=== PATIENT | male | born 1955 | race African-American/Black ===

== ENCOUNTER 2024-06-22 15:46 | Inpatient (IN) | payer MEDICARE, OTHER ==
[~2024-06-22] VITALS: Ht 167.6 cm; Wt 91.2 kg
[~2024-06-22 15:46] MED LIST: ACET-868 PO; RISP2TAB5 PO; [UNRECOGNIZED DRUG - CODE] PO
[2024-06-22 16:23] LABS: BASOPHILS % (AUTO) 0.4 % (0.0-2.0); EOSINOPHILS # (AUTO) 0.2 K/uL (0.0-0.7); HEMATOCRIT 40 % (39-51); HEMOGLOBIN 13.5 g/dL (13.5-17.5); LYMPHOCYTES # (AUTO) 2.4 K/uL (0.8-4.8); LYMPHOCYTES % (AUTO) 50.9 % (20.0-44.0); MEAN CORPUSCULAR HEMOGLOBIN 32 PG (26.0-33.0); MEAN CORPUSCULAR HGB CONC 34 g/dl (31.0-36.0); MEAN CORPUSCULAR VOLUME 96 fL (80-96); MONOCYTES # (AUTO) 0.3 K/uL (0.1-1.30); NEUTROPHILS # (AUTO) 1.8 K/uL (1.8-8.9); NEUTROPHILS % (AUTO) 37.7 % (43.0-81.0); PLATELET COUNT (AUTO) 216 K/uL (150-450); RED BLOOD CELL COUNT(AUTO) 4.19 MIL/uL (4.5-6.0); RED CELL DISTRIBUTION WIDTH 14.8 % (11.5-15.0); WHITE BLOOD COUNT (AUTO) 4.7 K/uL (4.3-11.0)
[2024-06-22 16:30] LABS: CALCIUM, SERUM 9.1 mg/dL (8.5-10.1); CARBON DIOXIDE 32 mmol/L (21-32); CHLORIDE 103 mmol/L (98-107); CREATININE 1.4 mg/dL (0.6-1.3); GLUCOSE 81 mg/dL (74-106); POTASSIUM 4.2 mmol/L (3.5-5.1); SODIUM SERUM 139 mmol/L (136-145); UREA NITROGEN, BLOOD 18 mg/dL (7-18)
[2024-06-22 16:36] LABS: ALANINE AMINOTRANSFERASE 32 U/L (12-78); ALCOHOL, BLOOD < 3 mg/dL (0-10); ALKALINE PHOSPHATASE 54 U/L (46-116); ASPARTATE AMINOTRANSFERASE 36 U/L (15-37); BILIRUBIN,DIRECT 0.1 mg/dL (0.0-0.2); BILIRUBIN,TOTAL 0.3 mg/dL (0.2-1.0); TOTAL PROTEIN, SERUM 7.5 g/dL (6.4-8.2)
[2024-06-22 16:47] LABS: ACETAMINOPHEN 0 ug/ml (10-30); SALICYLATE 0.6 mg/dL (2.8-20.0)
[2024-06-22 16:53] LABS: ALBUMIN 3.5 g/dL (3.4-5.0)
[2024-06-22 16:58] LABS: APPEARANCE,URINE Clear (CLEAR); BILIRUBIN,URINE Negative (NEGATIVE); BLOOD, URINE Trace-intact Ery/uL (NEGATIVE); COLOR,URINE LIGHT YELLOW (YELLOW); KETONES,URINE Trace mg/dL (NEGATIVE); LEUKOCYTE ESTERASE ,URINE Small (NEGATIVE); NITRITE, URINE Negative (NEGATIVE); PROTEIN,URINE Negative (NEGATIVE); UGLUCOSE Negative (NEGATIVE); UROBILINOGEN,URINE 0.2 EU/dL (0.2)
[2024-06-22] MEDS ORDERED: ARIP5TAB59 PO (16:58)
[2024-06-22] MEDS ORDERED: MELA3TAB41 PO (16:58)
[2024-06-22] MEDS ORDERED: TRAZ-182 PO (16:58)
[2024-06-22] MEDS ORDERED: MAGN400O6 PO (16:58)
[2024-06-22] MEDS ORDERED: BISA10SU11 RC (16:58)
[2024-06-22] MEDS ORDERED: NA P133E RC (16:58)
[2024-06-22] MEDS ORDERED: DIVA-78 PO (16:58)
[2024-06-22] MEDS ORDERED: HALO5TAB8 PO (16:58)
[2024-06-22 17:01] LABS: AMPHETAMINE, URINE NEGATIVE (NEGATIVE); BARBITURATE, URINE NEGATIVE (NEGATIVE); BENZODIAZEPINE, URINE NEGATIVE (NEGATIVE); CANNABINOID, URINE NEGATIVE (NEGATIVE); COCCAINE, URINE NEGATIVE (NEGATIVE); OPIATE, URINE NEGATIVE (NEGATIVE); PHENCYCLIDINE SCREEN,URINE NEGATIVE (NEGATIVE)
[2024-06-22 18:05] LABS: ADD URINE CULTURE YES; BACTERIA,URINE Rare /HPF (None Seen); WBC,URINE 21-50 /HPF (0-3)
[2024-06-22 18:06] LABS: SQUAMOUS EPITHELIAL CELL,UR Rare /HPF (None Seen)
[2024-06-22] MEDS: CEPHALEXIN MONOHYDRATE 500 MG CAPSULE PO ONE (20:21)
[2024-06-23] MEDS ORDERED: MAGNESIUM HYDROXIDE 30 ML UDC PO PRN
[2024-06-23] MEDS ORDERED: MAG HYDROX/AL HYDROX/SIMETH 30 ML UDC PO PRN
[2024-06-23] MEDS ORDERED: ZOLPIDEM TARTRATE 5 MG TABLET PO PRN
[2024-06-23] MEDS: BLOOD SUGAR DIAGNOSTIC 1 EACH STRIP IN ONE (00:19)
[2024-06-23 00:33] VITALS: BP 142/68; TEMP 97.8; O2SAT 98
[2024-06-23] MEDS: CEPHALEXIN MONOHYDRATE 250 MG CAPSULE PO SCH (00:47)
[2024-06-23 06:37] VITALS: BP 152/66; TEMP 97.6; O2SAT 100
[2024-06-23] MEDS: QUETIAPINE FUMARATE 25 MG TABLET PO PRN (11:40)
[2024-06-23] MEDS ORDERED: TEMAZEPAM 7.5 MG CAPSULE PO PRN (14:00)
[2024-06-23] MEDS: SENNOSIDES 8.6 MG TABLET PO SCH (14:26)
[2024-06-23] MEDS: DIVALPROEX SODIUM 250 MG TABLET.DR PO SCH (14:26)
[2024-06-23 16:00] VITALS: BP 133/85; TEMP 97.6; O2SAT 98
[2024-06-23 16:54] LABS: CREATININE, URINE 104.1 MG/DL (30.0-125.0); URINE TOTAL PROTEIN 7.1 mg/dL (0-11.9)
[2024-06-23] MEDS ORDERED: SORBITOL SOLUTION 70% 30 ML SOLUTION PO PRN (17:00)
[2024-06-23 20:00] VITALS: BP 138/90; TEMP 97.8; O2SAT 100
[2024-06-23 20:12] LABS: APPEARANCE,URINE CLEAR (CLEAR); BILIRUBIN,URINE NEGATIVE (NEGATIVE); BLOOD, URINE NEGATIVE Ery/uL (NEGATIVE); COLOR,URINE YELLOW (YELLOW); KETONES,URINE NEGATIVE (NEGATIVE); LEUKOCYTE ESTERASE ,URINE 1+ (NEGATIVE); NITRITE, URINE NEGATIVE (NEGATIVE); PH,URINE 6.5 (5.0-8.0); PROTEIN,URINE NEGATIVE (NEGATIVE); UGLUCOSE NEGATIVE (NEGATIVE); UROBILINOGEN,URINE 0.2 EU/dL (0.2)
[2024-06-23 20:18] LABS: ADD URINE CULTURE YES; BACTERIA,URINE 1+ /HPF (None Seen); RBC,URINE 0-2 /HPF (0-2)
[2024-06-23] MEDS: risperiDONE 1 MG TABLET PO SCH (20:42)
[2024-06-23 21:44] LABS: EOSINOPHIL,URINE None Seen
[2024-06-24 06:53] LABS: BASOPHILS % (AUTO) 0.5 % (0.0-2.0); EOSINOPHILS # (AUTO) 0.3 K/uL (0.0-0.7); EOSINOPHILS % (AUTO) 6.9 % (0.0-6.0); HEMATOCRIT 41 % (39-51); HEMOGLOBIN 13.7 g/dL (13.5-17.5); LYMPHOCYTES # (AUTO) 2.2 K/uL (0.8-4.8); LYMPHOCYTES % (AUTO) 54.7 % (20.0-44.0); MEAN CORPUSCULAR HEMOGLOBIN 32 PG (26.0-33.0); MEAN CORPUSCULAR HGB CONC 33 g/dl (31.0-36.0); MEAN CORPUSCULAR VOLUME 95 fL (80-96); MONOCYTES # (AUTO) 0.3 K/uL (0.1-1.30); MONOCYTES % (AUTO) 8.4 % (2.0-12.0); NEUTROPHILS # (AUTO) 1.2 K/uL (1.8-8.9); NEUTROPHILS % (AUTO) 29.5 % (43.0-81.0); PLATELET COUNT (AUTO) 200 K/uL (150-450); RED BLOOD CELL COUNT(AUTO) 4.31 MIL/uL (4.5-6.0); RED CELL DISTRIBUTION WIDTH 14.5 % (11.5-15.0); WHITE BLOOD COUNT (AUTO) 4.1 K/uL (4.3-11.0)
[2024-06-24 08:00] VITALS: BP 151/83; TEMP 97.8; O2SAT 100
[2024-06-24 08:19] LABS: ALANINE AMINOTRANSFERASE 25 U/L (12-78); ALKALINE PHOSPHATASE 54 U/L (46-116); ASPARTATE AMINOTRANSFERASE 24 U/L (15-37); BILIRUBIN,TOTAL 0.3 mg/dL (0.2-1.0); CARBON DIOXIDE 28 mmol/L (21-32); CHLORIDE 107 mmol/L (98-107); CREATININE 1.2 mg/dL (0.6-1.3); GLUCOSE 89 mg/dL (74-106); MAGNESIUM 2.1 mg/dL (1.8-2.4); POTASSIUM 4.6 mmol/L (3.5-5.1); SODIUM SERUM 144 mmol/L (136-145); TOTAL PROTEIN, SERUM 6.9 g/dL (6.4-8.2); UREA NITROGEN, BLOOD 18 mg/dL (7-18)
[2024-06-24 08:46] LABS: CREATINE KINASE, TOTAL 285 U/L (39-308)
[2024-06-24] MEDS ORDERED: ACETAMINOPHEN 325 MG TABLET PO PRN (09:30)
[2024-06-24] MEDS ORDERED: BISACODYL SUPP (10 MG) 10 MG/SUPP.RECT SUPP.RECT RC PRN (09:30)
[2024-06-24] MEDS ORDERED: MAGNESIUM HYDROXIDE 30 ML UDC PO PRN (09:30)
[2024-06-24] MEDS ORDERED: NA PHOS,M-B/NA PHOS,DI-BA 1 EA ENEMA RC PRN (09:30)
[2024-06-24] MEDS: OXCARBAZEPINE 150 MG TABLET PO SCH (13:30)
[2024-06-24 16:00] VITALS: BP 141/79; TEMP 98; O2SAT 100
[2024-06-24 20:00] VITALS: BP 139/79; TEMP 98.3; O2SAT 100
[2024-06-25 08:00] VITALS: BP 146/79; TEMP 97.8; O2SAT 100
[2024-06-25 09:12] LABS: PTH, INTACT 16 pg/mL (15-65)
[2024-06-25 16:00] VITALS: BP 116/71; TEMP 97.9; O2SAT 98
[2024-06-25 20:00] VITALS: BP 158/90; TEMP 97.9; O2SAT 98
[2024-06-25] MEDS: risperiDONE 1 MG TABLET PO SCH (20:46)
[2024-06-26 08:00] VITALS: BP 116/74; TEMP 97.7; O2SAT 97
[2024-06-26] MEDS: risperiDONE 1 MG TABLET PO SCH (08:32)
[2024-06-26 16:12] VITALS: BP 121/74; TEMP 98.1; O2SAT 99
[2024-06-26 20:00] VITALS: BP 148/87; TEMP 98.1; O2SAT 100
[2024-06-27 08:00] VITALS: BP 126/68; TEMP 97.5; O2SAT 100
[2024-06-27] MEDS: risperiDONE 1 MG TABLET PO SCH (08:19)
[2024-06-27 10:11] LABS: *SPE ALBUMIN 3.1 g/dL (2.9-4.4); *SPE ALPHA-1-GLOBULIN 0.2 g/dL (0.0-0.4); *SPE ALPHA-2-GLOBULIN 0.4 g/dL (0.4-1.0); *SPE BETA GLOBULIN 0.9 g/dL (0.7-1.3); *SPE GLOBULIN, TOTAL 3.2 g/dL (2.2-3.9); *SPE M-SPIKE Not Observed g/dL (Not Observed); *SPE PROTEIN TOTAL 6.3 g/dL (6.0-8.5); *SPEGAMMA GLOBULIN 1.8 g/dL (0.4-1.8)
[2024-06-27] MEDS: OXCARBAZEPINE 150 MG TABLET PO SCH (14:00)
[2024-06-27 16:03] VITALS: BP 138/91; TEMP 97.8; O2SAT 99
[2024-06-27 21:11] VITALS: BP 130/68; TEMP 97.9; O2SAT 99
[2024-06-28 08:00] VITALS: BP 133/79; TEMP 98.7; O2SAT 98
[2024-06-28] MEDS: OLANZAPINE 10 MG VIAL IM ONE (08:57)
[2024-06-28 16:00] VITALS: BP 134/67; TEMP 98.7; O2SAT 100
[2024-06-28] MEDS: risperiDONE 1 MG TABLET PO SCH (21:03)
[2024-06-29] MEDS: risperiDONE 1 MG TABLET PO SCH (08:04)
[2024-06-29 16:00] VITALS: BP 124/68; TEMP 98.7; O2SAT 99
[2024-06-29 20:00] VITALS: BP 138/79; TEMP 98.5; O2SAT 99
[2024-06-29] MEDS: PALIPERIDONE PALMITATE 234 MG/1.5 ML SYRINGE IM ONE (20:01)
[2024-06-29] MEDS: SULFAMEHOX/TRIMETH 200-40MG/ 5 ML UDC PO SCH (21:26)
[2024-06-29] MEDS: TRAZODONE 50 MG TABLET PO SCH (21:26)
[2024-06-30 08:00] VITALS: BP 121/56; TEMP 98.9; O2SAT 99
[2024-06-30] MEDS: SULFAMETH/TRIMETH 800/160 MG 1 UDTAB TABLET PO SCH (14:22)
[2024-06-30 16:00] VITALS: BP 115/57; TEMP 98.6; O2SAT 99
[2024-06-30 20:00] VITALS: BP 147/67; TEMP 98.5; O2SAT 99
[2024-07-01 08:00] VITALS: BP 130/61; TEMP 98.6; O2SAT 100
[2024-07-01 16:00] VITALS: BP 125/70; TEMP 98; O2SAT 98
[2024-07-01 20:00] VITALS: BP 122/71; TEMP 98; O2SAT 100
[2024-07-02 08:00] VITALS: BP 127/79; TEMP 98.2; O2SAT 98
[2024-07-02 16:00] VITALS: BP 126/64; TEMP 99; O2SAT 100
[2024-07-02 20:00] VITALS: BP 115/55; TEMP 98.2; O2SAT 97
[2024-07-02] MEDS: risperiDONE 1 MG TABLET PO SCH (21:12)
[2024-07-03 21:02] VITALS: BP 124/60; TEMP 98.1; O2SAT 99
[2024-07-04 08:00] VITALS: BP 125/68; TEMP 98.6; O2SAT 98
[2024-07-04] MEDS: ACETAMINOPHEN 325 MG TABLET PO PRN (10:26)
[2024-07-04 16:00] VITALS: BP 113/63; TEMP 98.7; O2SAT 96
[2024-07-04 20:59] VITALS: BP 124/71; TEMP 98.2; O2SAT 99
[2024-07-05 08:00] VITALS: BP 105/69; TEMP 98.7; O2SAT 98
[2024-07-05 16:00] VITALS: BP 115/60; TEMP 98.7; O2SAT 100
[2024-07-05] MEDS: PALIPERIDONE PALMITATE 156 MG/ML SYRINGE IM ONE (18:36)
[2024-07-05 20:00] VITALS: BP 117/69; TEMP 97.7; O2SAT 97
[2024-07-06 08:00] VITALS: BP 127/78; TEMP 98.7; O2SAT 98
[2024-07-06 16:00] VITALS: BP 111/66; TEMP 97.9; O2SAT 100
[2024-07-06 20:00] VITALS: BP 122/68; TEMP 98.2; O2SAT 99
[2024-07-07 08:00] VITALS: BP 131/82; TEMP 98; O2SAT 100
[2024-07-07 16:00] VITALS: BP 132/70; TEMP 98; O2SAT 95
== END 2024-07-07 18:09 | DRG 885 ==
LOC: ER 15:50 → GPS 22:46
PROVIDERS: ADMIT Psychiatry & Neurology Psychiatry; ATTEND Surgery Vascular Surgery
DX: F31.2 Bipolar disorder, current episode manic severe with psychotic features (principal); N17.9 Acute kidney failure, unspecified; N39.0 Urinary tract infection, site not specified; E44.1 Mild protein-calorie malnutrition; F03.911 Unspecified dementia, unspecified severity, with agitation; G93.40 Encephalopathy, unspecified; F20.0 Paranoid schizophrenia; B96.20 Unspecified Escherichia coli [E. coli] as the cause of diseases classified elsewhere; E66.9 Obesity, unspecified; Z68.32 Body mass index [BMI] 32.0-32.9, adult; M89.8X9 Other specified disorders of bone, unspecified site; Z79.899 Other long term (current) drug therapy
CPT/HCPCS: 36415; 76770-TC; 80048-TC; 80053-TC; 80076-TC; 81001; 82550-TC; 82570-TC; 82962-TC; 83735-TC; 83970; 84100-TC; 84155; 84165; 84300-TC; 85025-TC; 87081-TC; 87086-TC; G0480; J2426; J3490